=== PATIENT | female | born 1990 | race African-American/Black ===

== ENCOUNTER 2021-10-15 05:27 | Emergency (ER) | payer MEDICAID, OTHER ==
[~2021-10-15] VITALS: Ht 167.6 cm; Wt 137.4 kg
[2021-10-15 05:34] VITALS: BP 112/56
[2021-10-15] MEDS ORDERED: cefTRIAXone SOD 1,000 MG VL IM ONE (06:30)
[2021-10-15] MEDS ORDERED: ONDANSETRON ODT 4 MG TAB PO ONE (06:30)
[2021-10-15] MEDS ORDERED: methylPREDNISolone SOD SUCC 125 MG/2 ML VL IM ONE (06:30)
[2021-10-15] MEDS ORDERED: ACET-1158 PO (06:44)
[2021-10-15] MEDS ORDERED: AMOX-277 PO (06:44)
[2021-10-15] MEDS ORDERED: PRED20TA2 PO (06:44)
== END 2021-10-15 06:59 | disposition home or self-care (01) ==
LOC: ER 05:27
DX: J02.9 Acute pharyngitis, unspecified (principal); Z79.2 Long term (current) use of antibiotics; Z79.899 Other long term (current) drug therapy
CPT/HCPCS: 96372; 99284; J0696; J2930; Q0162